=== PATIENT | female | born 1990 | race African-American/Black ===

== ENCOUNTER 2020-11-05 18:15 | Emergency (ER) | payer MEDICAID ==
[~2020-11-05] VITALS: Ht 175.3 cm; Wt 54.4 kg
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
[2020-11-05] MEDS ORDERED: ACETAMINOPHEN 325 MG TABLET PO ONE (19:00)
[2020-11-05] MEDS ORDERED: ACETAMINOPHEN 325 MG TABLET ONE (19:07)
[2020-11-05] MEDS ORDERED: TDAP [DIPH/PERTUSSIS/TET] 0.5 ML VIAL IM ONE ×2 (19:30→19:32)
--- NOTE | 2020-11-05 19:37 | NUR ---
EMT AT BEDSIDE
[2020-11-05] MEDS ORDERED: LIDOCAINE HCL/MPF 1% 30 ML VIAL IJ ONE (19:39)
[2020-11-05] MEDS ORDERED: AMOX500C2 PO (20:59)
--- NOTE | 2020-11-05 21:00 | NUR ---
PT OK TO DISCHARGE PER DR HINDS. Patient discharged to home in stable condition. Written and verbal after care instructions given. Patient verbalizes understanding of instruction.Patient is awake and alert to self, day, and place. PT ambulatory with a steady gait
[2020-11-06 01:40] VITALS: BP 121/69
== END 2020-11-06 01:40 | disposition home or self-care (01) ==
LOC: ER 18:15
DX: S01.512A Laceration without foreign body of oral cavity, initial encounter (principal); S16.1XXA Strain of muscle, fascia and tendon at neck level, initial encounter; S29.011A Strain of muscle and tendon of front wall of thorax, initial encounter; S09.8XXA Other specified injuries of head, initial encounter; V32.5XXA Driver of three-wheeled motor vehicle injured in collision with two- or three-wheeled motor vehicle in traffic accident, initial encounter; Y93.89 Activity, other specified; Y92.413 State road as the place of occurrence of the external cause; Y99.8 Other external cause status
CPT/HCPCS: 12011; 72050; 90471; 90715; 99283; J3490